=== PATIENT | male | born 1975 | race Caucasian/White ===

== ENCOUNTER 2020-01-03 02:33 | Inpatient (IN) | payer OTHER ==
[~2020-01-03] VITALS: Ht 190.5 cm; Wt 113.4 kg
[~2020-01-03 02:33] MED LIST: MEDROL DOSPAK21 TAB PO; ULTRAM 50MG TAB50 MG PO; VALIUM5 MG PO
[2020-01-03 02:35] VITALS: BP 127/70
[2020-01-03 03:26] LABS: ABSOLUTE NEUTROPHILS 9.5 thou/uL (1.4-8.2); BASOPHILS 1.2 % (0.0-2.0); EOSINOPHILS 1.5 % (0.0-3.0); HEMATOCRIT 44.4 % (42.0-52.0); HEMOGLOBIN 15.2 gm/dL (14.0-18.0); LYMPHOCYTES 14.8 % (24.0-44.0); MCHC 34.2 g/dL (28.0-37.0); MCV 87.8 fL (80.0-100.0); MONOCYTES 6.7 % (1.0-8.0); PLATELET COUNT 415 thou/uL (150-400); POLYS 75.8 % (36.0-66.0); RBC 5.06 mil/uL (4.50-6.00); RDW 13.5 % (10.5-14.5); WBC 12.5 thou/uL (4.0-11.0)
[2020-01-03 03:39] LABS: CREATININE 1.1 mg/dL (0.7-1.3); POTASSIUM 5.1 mmol/L (3.5-5.1)
[2020-01-03 03:50] LABS: TOTAL BILIRUBIN 0.3 mg/dL (0.2-1.0); TOTAL PROTEIN 7.9 g/dL (6.4-8.2); TROPONIN-I 0.14 ng/mL (<0.06)
[2020-01-03 07:09] LABS: BE(vivo) -0.3 mmol/L (-2 to +3); HCO3 21.7 mmol/L (22.0-26.0); PCO2 29.3 mmHg (35.0-45.0); PO2 87.2 mmHg (80.0-100.0); pH 7.488 (7.360-7.450); sO2 97.3 % (92.0-98.0)
[2020-01-03 07:11] VITALS: BP 110/89
[2020-01-03 07:56] LABS: PROTIME 10.3 Seconds (9.3-11.4)
--- NOTE | 2020-01-03 10:34 | NUR ---
THE PT'S FATHER STATED HE PT WAS IN THE MIDDLE OF THE BED WHEN LEFT ALONE AND MUST HAVE ROLLED APPROX 2 FEET TO THE EDGE OF THE BED BEFORE FALLING OFF.
[2020-01-03 14:58] LABS: AMP/METHAMP POSITIVE (Negative); BARBITURATES Negative (Negative); BENZODIAZEPINES Negative (Negative); COCAINE Negative (Negative); METHADONE Negative (Negative); OPIATES Negative (Negative); PCP Negative (Negative)
[2020-01-03 18:50] LABS: HEMATOCRIT 42.6 % (42.0-52.0); MCH 30.8 pg (26.0-34.0); MCHC 35.2 g/dL (28.0-37.0); MCV 87.4 fL (80.0-100.0); RBC 4.87 mil/uL (4.50-6.00); RDW 13.7 % (10.5-14.5); WBC 12.1 thou/uL (4.0-11.0)
[2020-01-03 19:05] LABS: INR 1.1; PROTIME 11.1 Seconds (9.3-11.4)
--- NOTE | 2020-01-03 22:00 | NUR ---
PER INFECTION CONTROL, DC ENHANCED ISOLATION.
[2020-01-04] VITALS (16 sets, daily range): BP systolic 96–132; BP diastolic 65–95
[2020-01-04 01:06] LABS: GLYCOHEMOGLOBIN (HGB A1C) 6.6 % (4.8-5.6)
[2020-01-04 06:43] LABS: ABSOLUTE NEUTROPHILS 8.1 thou/uL (1.4-8.2); BASOPHILS 0.9 % (0.0-2.0); HEMATOCRIT 43.5 % (42.0-52.0); HEMOGLOBIN 14.8 gm/dL (14.0-18.0); LYMPHOCYTES 24.9 % (24.0-44.0); MCH 29.8 pg (26.0-34.0); MCV 87.7 fL (80.0-100.0); MONOCYTES 8.3 % (1.0-8.0); PLATELET COUNT 413 thou/uL (150-400); POLYS 64.9 % (36.0-66.0); RBC 4.96 mil/uL (4.50-6.00); RDW 13.4 % (10.5-14.5); WBC 12.5 thou/uL (4.0-11.0)
[2020-01-04 06:59] LABS: CALCIUM 7.5 mg/dL (8.5-10.1); CREATININE 1.1 mg/dL (0.7-1.3); MAGNESIUM 1.7 mg/dL (1.8-2.4); POTASSIUM 3.6 mmol/L (3.5-5.1)
--- NOTE | 2020-01-04 08:32 | NUR ---
UPON ARRIVAL AT THE START OF SHIFT THE HEPARIN DRIP WAS RUNNING AT 15 UNITS/KG/HR
--- NOTE | 2020-01-04 08:40 | EKG ---
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: CHANDNI : 1975 Requested By: Bud Saini Order Number: [id number] MD: Jb Yu Measurements Intervals [place] Rate: 119 P: 61 OR: 160 QRS: -64 QRSD: 77 T: 15 QT: 323 QTc: 455 Interpretive Statements Sinus tachycardia Markedly posterior QRS axis ST elev, probable normal early repol pattern No previous ECG available for comparison Electronically Signed On 01-04-2020 8:40:36 CDT by Jb Yu [email or web address] <ELECTRONICALLY SIGNED> By: Jb Yu MD, FACC 01/04/20 0840 0304 [id number] Jb Yu MD, [facility] /[facility]
--- NOTE | 2020-01-04 09:21 | 2DMMODE ---
[facility] [place] [address] 2 D/M-MODE ECHOCARDIOGRAM Name: CATRACHO ZHAO Room #: 170-6 ADM IN M.R.#: [id number] Admission: 01/03/20 Attend Phys: Mk Welch MD Discharge: Date of : 77 Report #: [id number] THIS REPORT FOR: cc: NO FAMILY PHYSICIAN or PCP NO FAMILY PHYSICIAN or PCP Richard Mcgovern MD ~ APPROVED REPORT Study performed: 01/04/2020 08:44:04 EXAM: Limited 2D, Doppler, and color-flow Echocardiogram Patient Location: ER Status: routine BSA: 2.49 HR: 114 bpm BP: 106/82 mmHg Rhythm: Tachycardia Other Information Study Quality: Fair/limited measurements taken. Technically limited study due to patient very short of breath, sitting straight up in bed, obesity. Indications Saddle pulmonary embolism, elevated troponin, elevated BNP. Limited echo patient in COVID pending isolation. Hx: Tobacco and Meth abuse. Aortic Valve AoV Peak Donald.: 0.89 m/s AO Peak Gr.: 3.15 mmHg Mitral Valve E/A Ratio: 0.7 MV Decel. Time: 139.59 ms MV E Max Donald.: 0.51 m/s MV A Donald.: 0.70 m/s MV PHT: 40.48 ms Tricuspid Valve PA Pressure: 15.00 mmHg Left Ventricle The left ventricle is normal size. There is normal LV segmental wall [facility] [address] [place] [address] 2 D/M-MODE ECHOCARDIOGRAM Name: CATRACHO ZHAO Room #: 170-6 ADM IN .R.#: [id number] Admission: 01/03/20 Attend Phys: Mk Welch MD Discharge: Date of : 77 Report #: [id number] motion. Left ventricular systolic function is normal. LVEF is 60-65%. Mild diastolic dysfunction is present (impaired relaxation pattern). Right Ventricle Right ventricle is dilated. Right ventricle is hypokinetic. Atria The left atrium size is normal. Right atrium is dilated. Aortic Valve The aortic valve is normal in structure. No aortic regurgitation is present. There is no aortic valvular stenosis. Mitral Valve The mitral valve is normal in structure. There is no mitral valve regurgitation noted. Tricuspid Valve The tricuspid valve is normal in structure. Trace tricuspid regurgitation. Unable to assess PA pressure. Great Vessels IVC is dilated and collapses <50% with inspiration. Pericardium There is no pericardial effusion. <Conclusion> The left ventricle is normal size. Left ventricular systolic function is normal. Mild diastolic dysfunction is present (impaired relaxation pattern). Right ventricle is dilated. Right atrium is dilated. The aortic valve is normal in structure. There is no mitral valve regurgitation noted. Trace tricuspid regurgitation. <ELECTRONICALLY SIGNED> By: Richard Mcgovern MD 01/04/20920 0 0 Richard Mcgovern MD /LILLI
--- NOTE | 2020-01-04 09:37 | NUR ---
THE APTT BLOOD SAMPLE RESULT FROM 0850 WAS OBTAINED FROM THE SAME LINE THE HEPARIN DRIP AND MAY NOT HAVE ALLOWED ENOUGH TIME TO PASS FROM STOPPING THE DRIP TO OBTAINING THE SAMPLE. THE SAMPLE WILL BE RE-DRAWN.
--- NOTE | 2020-01-04 09:40 | NUR ---
LAB CALLED TO TRY AND OBTAIN A APTT BLOOD SAMPLE
--- NOTE | 2020-01-04 10:52 | NUR ---
UPDATED DR TERRY ON APTT
--- NOTE | 2020-01-04 11:15 | NUR ---
PER APTT - PT GIVEN A 30ML HEPARIN BOLUS AND NEW HEPARIN DRIP STARTED AT 17 UNITS/KG/HR
--- NOTE | 2020-01-04 15:00 | NUR ---
PT ADMITTED TO ICU AT 1400 TO ROOM 248. PT ARRIVED WITH IV HEPARIN INFUSING AT 17UNITS/KG/HR A RATE OF 20.74MLS/HR INTO HIS L AC. PT ARRIVED VIA BED AND ER NURSE AND 2 ICU NURSES WITH USE OF ORANGE SLIDING DEVICE ASSISTED PT FROM ER BED TO ICU BED. PT HOOKED UP TO ICU MECHANICAL MANUFACTURING TECHNICIAN, PULSE OX, AND BLOOD PRESSURE. PT APPEARS TO HAVE LABORED BREATHING WITH ANY PHYSICAL ACTIVITY AND BECOMES DIAPHORETIC. PT DENIES PAIN AT THIS TIME BUT STATES HE WAS HAVING CHEST TIGHTNESS DOWNSTAIRS IN ER. PT INSTRUCTED TO REPORT ANY FURTHER PAIN TO RN. PT AFEBRILE UPON ARRIVAL. PT ASKED AND GIVEN ICE WATER. PT ASKED FOR SHADES TO BE CLOSED AND STATES HE WANTS TO REST. FAN TURNED ON PER PT REQUEST. PT GIVEN ADMISSION EDUCATION AND STATES NO QUESTIONS. PT 4-DIGIT CODE GIVEN TO PT'S MOTHER PER PT REQUEST. PT PLACED ON 2L NC FOR COMFORT WHILE RESTING. 02 SAT 94% ON RA UPON ARRIVAL.
[2020-01-05] VITALS (14 sets, daily range): BP systolic 99–132; BP diastolic 66–86
[2020-01-05 04:54] LABS: HEMATOCRIT 44.2 % (42.0-52.0); HEMOGLOBIN 15.1 gm/dL (14.0-18.0); MCH 30.4 pg (26.0-34.0); MCHC 34.3 g/dL (28.0-37.0); MCV 88.6 fL (80.0-100.0); RBC 4.98 mil/uL (4.50-6.00); RDW 13.5 % (10.5-14.5)
[2020-01-05 04:56] LABS: CALCIUM 8.9 mg/dL (8.5-10.1); CREATININE 1.1 mg/dL (0.7-1.3)
[2020-01-05 05:24] LABS: POTASSIUM 4.9 mmol/L (3.5-5.1)
--- NOTE | 2020-01-05 16:00 | NUR ---
ASSUMED CARE OF PT AT 1545. PT RESTING COMFORTABALLY. DENIES PAIN/SOA. WILL HEPARIN GTT INFUSING. WILL CONTINUE TO MONITOR PATIENT.
--- NOTE | 2020-01-05 16:56 | NUR ---
INITIAL ASSESSMENT: SW reviewed chart and spoke with nursing and attending physician. Pt was admitted from home due to bilateral PE. Pt is on heparin gtt. No weekend discharge planned. SW met with pt at bedside. Introduced role of SW. Pt is alert/orientated x 4. Pt reports he lives at home. Prior to admission, pt was independent with ADLs. No use of DME. Pt does not have a PCP. Pt confirmed that he does not have health insurance. Pt will need Health Resource Guide/Safety net clinic info prior to admission. [facility] is following to assist as needed with discharge planning.
--- NOTE | 2020-01-05 18:42 | NUR ---
ORDER TO TRANSFER TO CCU. REPORT CALLED TO RAMON LOPEZ. PT'S MOM INFORMED ON TRANSFER.
[2020-01-06] VITALS: BP 123/82
[2020-01-06 04:17] LABS: HEMATOCRIT 42.5 % (42.0-52.0); HEMOGLOBIN 14.5 gm/dL (14.0-18.0); MCH 29.8 pg (26.0-34.0); MCHC 34.1 g/dL (28.0-37.0); MCV 87.4 fL (80.0-100.0); RBC 4.86 mil/uL (4.50-6.00); RDW 13.3 % (10.5-14.5); WBC 10.7 thou/uL (4.0-11.0)
[2020-01-06 04:21] LABS: CALCIUM 8.6 mg/dL (8.5-10.1); CREATININE 1.1 mg/dL (0.7-1.3); POTASSIUM 4.7 mmol/L (3.5-5.1)
[2020-01-06 04:30] VITALS: BP 102/59
--- NOTE | 2020-01-06 05:52 | NUR ---
ASSESSMENT DOCUMENTED.PT RESTING IN NO ACUTE DISTRESS.A/OX4.VSS.REMAINS ON HEPARIN GTT PER PROTOCOL.DENIES RESP DISTRESS.NO CONCERNS VOICED.WILL CONT TO MONITOR PER POC.
[2020-01-06 07:35] VITALS: BP 128/84
--- NOTE | 2020-01-06 10:28 | NUR ---
PT STATED HE "HARDLY SLEPT LAST NIGHT" WILL TRY TO PROMOTE REST TODAY. DR TERRY IN TO SEE. PT AWARE HE'LL BE SWITCHED TO ELIQUIS AND HAVE HEPARIN GTT D/C'D TODAY. WILL EDUCATE ON ELIQUIS.
--- NOTE | 2020-01-06 12:33 | NUR ---
HEPARING GTT D/C'D AT 1200 AFTER PO ELIQUIS WAS GIVEN. SPOKE WITH MOM, EVASN, SHE VERBALIZED UNDERSTANDING OF POC.
[2020-01-06 12:45] VITALS: BP 124/78
--- NOTE | 2020-01-06 16:20 | NUR ---
PT, THROUGH TEARS, EXPLAINED THAT HE FELT THAT HE COULD NOT STAY IN THE HOSPITAL ANOTHER DAY, HE FEELS LIKE HE'S GOING CRAZY. HAVE PAGED DR TERRY FOR ANXIETY MED, AND WILL TRY TO AMBULATE PT IN HALLWAY.
--- NOTE | 2020-01-06 18:08 | NUR ---
PT SAID HE WANTED TO LEAVE "CANNOT STAY ANOTHER NIGHT IN THIS PLACE" "WANT TO GO HOME NOW" DR TERRY MADE AWARE. INFORMED PT OF THE RISK OF LEAVING EARLY AND WHY IT WAS IMPORTANT THAT HE STAY. HE WANTED TO LEAVE ANYWAYS AND SAID HE'D GO SEE A DR TO GET ELIQUIS. IV AND TELE REMOVED, PT LEFT AFTER SIGNING AMA FORM AND TOOK ALL BELONGINGS
== END 2020-01-06 18:00 | disposition left against medical advice (07) | DRG 175 ==
LOC: ER 02:33 → EROBS 05:25 → ICU 01-04 13:36 → 2N 01-05 19:30
PROVIDERS: Emergency Medicine; Nurse Practitioner; Nurse Practitioner Family; ADMIT Hospitalist; ATTEND Hospitalist
DX: I26.02 Saddle embolus of pulmonary artery with acute cor pulmonale (principal); E44.0 Moderate protein-calorie malnutrition; I27.20 Pulmonary hypertension, unspecified; E66.9 Obesity, unspecified; F19.10 Other psychoactive substance abuse, uncomplicated; R73.9 Hyperglycemia, unspecified; Z20.828 Contact with and (suspected) exposure to other viral communicable diseases; Z68.31 Body mass index [BMI] 31.0-31.9, adult; Z79.899 Other long term (current) drug therapy; Z87.891 Personal history of nicotine dependence
CPT/HCPCS: 10078; 10081

== ENCOUNTER → 2020-01-11 | Outpatient (CLI) | payer OTHER | LOC: RAD 12:11 | PROVIDERS: ATTEND Pediatrics | DX: R06.00 Dyspnea, unspecified (principal); Z86.711 Personal history of pulmonary embolism ==